=== PATIENT | female | born 1965 | race Caucasian/White ===

== ENCOUNTER 2024-03-20 14:55 | Outpatient (OUT) | payer OTHER, SELFPAY ==
--- NOTE | 2024-03-20 15:03 | MM_ITS ---
Patient Name: GOLDEN GRACE MR#: [id number] : 1965 Exam Date: 03/20/2024 Ordering Doctor: DR BREN RODRIGUEZ RADIOLOGY REPORT PROCEDURE: MM TOMOSYNTHESIS DIAGNOSTIC BI, 03/20/2024, 15:05 US BREAST BI LIMITED, 03/20/2024, 15:21 COMPARISON: MG MAMM SCREEN HEATH W CAD, 11/30/2022. MG MAMM SCREEN HEATH W CAD, 05/25/2021. MG MAMM SCREEN HEATH W CAD, 05/19/2020. INDICATIONS: Mass Of Breast N63.0 Calculator Name NCI Breast Cancer Risk Assessment Tool 5 Year Breast Cancer Risk 1.70% Lifetime Breast Cancer Risk 10.90% Personal Breast Cancer No Personal Ovarian Cancer No Treatments None Family Cancers None LOCATION: [facility] BREAST COMPOSITION: There are scattered areas of fibroglandular density. FINDINGS: DIAGNOSTIC CATEGORY 4--SUSPICIOUS FOR MALIGNANCY. FINDING DOES NOT EXHIBIT CLASSIC FINDINGS OF BREAST CANCER: RIGHT BREAST: On the tomographic images there is a 15 x 10 x 9 mm subareolar nodule. Ultrasound evaluation demonstrates a heterogeneous, slightly nodular appearance of a 10 x 9 x 8 mm area in the subareolar region with adjacent 3 mm diameter duct containing soft tissue versus debris. No appreciable vascularity within the duct on color Doppler. Given its location and duct dilation with internal soft tissue/ debris within the opposite breast as well, MRI is recommended for further evaluation. LEFT BREAST: On the tomographic images there are two 10 mm subareolar nodules, 1 cephalad and 1 caudad, both measuring 10 millimeters. Ultrasound evaluation demonstrates a 12 x 7 x 4 mm subareolar nodule at the 9 o'clock position and a 12 x 11 x 7 mm subareolar nodule at the 6 o'clock position. 2.5 mm duct with some internal debris just below and slightly medial to the nipple. Given the nonspecific bilateral findings MRI of both breasts is recommended for further evaluation. RECOMMENDATIONS: BREAST MRI: BILATERAL BREASTS PLEASE NOTE: A NORMAL MAMMOGRAM DOES NOT EXCLUDE THE POSSIBILITY OF BREAST CANCER. A CLINICALLY SUSPICIOUS PALPABLE LUMP SHOULD BE BIOPSIED. Dictated by: Wilmar Mccarty M.D. on 03/20/2024 at 15:47 Approved by: Wilmar Mccarty M.D. on 03/20/2024 at 16:42
== END 2024-03-20 14:56 | disposition home or self-care (01) ==
LOC: MAMMO 14:55
PROVIDERS: PCP Obstetrics & Gynecology; Visit Provider Obstetrics & Gynecology
DX: R92.8 Other abnormal and inconclusive findings on diagnostic imaging of breast (principal); N63.0 Unspecified lump in unspecified breast; N63.20 Unspecified lump in the left breast, unspecified quadrant; N63.10 Unspecified lump in the right breast, unspecified quadrant
CPT/HCPCS: 76642; 77066; G0279